=== PATIENT | female | born 1955 | race Caucasian/White ===

== ENCOUNTER 2016-08-17 11:31 | Day surgery (SDC) | payer BC ==
[2016-08-15 15:55] VITALS: BMI 24.3
[2016-08-17] MEDS ORDERED: ROPIVACAINE HCL 0.5% 30ML VIAL ONE (13:35)
[2016-08-17] MEDS ORDERED: DEXAMETHASONE SOD PHOSPHATE/PF 10 MG/ML SDV ONE (13:35)
[2016-08-17] MEDS ORDERED: MIDAZOLAM HCL 2 MG/2 ML SINGLE DOSE VIAL ONE (13:35)
[2016-08-17] MEDS ORDERED: ceFAZolin SODIUM 1 GM VIAL ONE (14:37)
[2016-08-17] MEDS ORDERED: PROPOFOL 20 ML ONE ×2 (14:48→15:12)
[2016-08-17 16:09] VITALS: TEMP 99
[2016-08-17 17:42] VITALS: BP 100/68; PULSE 62
--- NOTE | 2016-08-18 09:51 | OP ---
DATE OF OPERATION: 08/17/2016 PREOPERATIVE DIAGNOSIS: Left comminuted intra-articular displacement distal radius fracture. POSTOPERATIVE DIAGNOSIS: Left comminuted intra-articular displacement distal radius fracture. PROCEDURES PERFORMED: 1. Open reduction and internal fixation of left comminuted intra-articular displacement distal radius fracture, with internal fixation of 3 or more fragments. 2. Left brachioradialis tenotomy. SURGEON: Yayo Maya MD EDUCATIONAL PSYCHOLOGY PROFESSOR: FLORENCE Melchor ANESTHESIA: Regional. COMPLICATIONS: None. ESTIMATED BLOOD LOSS: Minimal. INDICATIONS FOR PROCEDURE: The patient is a 61-year-old female with the above fingers, indicated for operative treatment. The risks, benefits and alternatives were discussed with the patient at length and proper informed consent was obtained. DESCRIPTION OF PROCEDURE: After proper identification of the patient and correct operative site, the patient was brought to the operating room and placed supine on the table, with the prominences well-padded. Sedation was given by the anesthesiologist. Regional anesthesia was given with 2% lidocaine. The left upper extremity was prepped and draped in the usual sterile fashion. A well-padded tourniquet was placed after sterile prep. Esmarch bandage was used to exsanguinate the left upper extremity and tourniquet inflated to 250 mmHg. A longitudinal incision was made over the volar aspect of the distal radius. An incision was made sharply through the skin, with blunt and sharp dissection of the subcutaneous tissues. The flexor carpi radialis tendon along with the contents of the carpal canal were bluntly and gently retracted in an ulnarward direction for the remainder of the procedure. The pronator quadratus was divided longitudinally and elevated off of the distal radius. The fracture was identified and was able to be reduced, but the pull of the brachioradialis did not allow reduction of the entire radial styloid. Therefore, brachioradialis tenotomy was performed in a subperiosteal fashion. The fracture was then anatomically reduced and held with an Acumed Acu-Loc distal radius plate, with distal locking screws and proximal nonlocking screws. This provided secure stable fixation of the radius, as confirmed radiographically as well as by stress examination and motion of the wrist, which was found to be full. Full pronation and supination was also possible, and there was no evidence of instability of the distal radioulnar joint or scapholunate interval. The wound was irrigated with saline. The wound was repaired in layers, including the pronator quadratus, with 4-0 Vicryl and 4-0 Monocryl sutures. Steri-Strips, sterile dressing and a volar wrist splint were placed. The patient was reversed from anesthesia and brought to the recovery room in stable condition. She tolerated the procedure well. Que Millan, the preschool teacher's assistant, was integral throughout this procedure, and the procedure could not have been performed without a skilled operative preschool teacher's assistant. YAYO MAYA M.D. [id number]
== END 2016-08-17 17:30 | disposition home or self-care (01) ==
LOC: FASU 11:31
PROVIDERS: ATTEND Orthopaedic Surgery Hand Surgery
PROC: 0LN60ZZ Release Left Lower Arm and Wrist Tendon, Open Approach (ICD-10-PCS; 2016-08-17)
PROC: 0PSJ04Z Reposition Left Radius with Internal Fixation Device, Open Approach (ICD-10-PCS; principal; 2016-08-17 14:30)
DX: S52.532A Colles' fracture of left radius, initial encounter for closed fracture (principal); X58.XXXA Exposure to other specified factors, initial encounter; Y93.9 Activity, unspecified; Y92.9 Unspecified place or not applicable
CPT/HCPCS: 73110-TC-LT